=== PATIENT | male | born 1970 | race Caucasian/White ===

== ENCOUNTER 2016-07-13 00:45 | Emergency (ER) | payer SELFPAY ==
[2016-07-13] MEDS ORDERED: Tetanus/Diphtheria Toxoids 0.5 ml Syringe IM ONE ×2 (00:52→00:58)
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
[2016-07-13] MEDS ORDERED: Bacitracin 500 Units/gm Oint Foilpak UD ONE ×2 (01:23→01:25)
[2016-07-13 02:29] VITALS: BP 128/74; PULSE 89; RESP 18; TEMP 98.2; O2SAT 99
== END 2016-07-13 02:28 | disposition home or self-care (01) ==
LOC: C.ER 00:45
DX: S01.111A Laceration without foreign body of right eyelid and periocular area, initial encounter (principal); Y08.89XA Assault by other specified means, initial encounter; Y92.811 Bus as the place of occurrence of the external cause

== ENCOUNTER 2016-07-17 15:44 | Emergency (ER) | payer SELFPAY ==
[2016-07-17 16:00] VITALS: BMI 28.1
[2016-07-17 16:01] VITALS: BP 112/73; PULSE 82; RESP 18; TEMP 98.2; O2SAT 97
--- NOTE | 2016-07-17 17:04 | C.PDOC ---
History Of Present Illness 45 year old patient presents to the ED for suture removal. Patient was seen here 4 days ago for sutures to the right eyelid. Patient denies redness, eye pain, vision change, or fever. Time Seen by Provider: 07/17/16 16:49 Chief Complaint (Nursing): Suture/Staple Removal History Per: Patient History/Exam Limitations: no limitations Onset/Duration Of Symptoms: Days Ago (4) Current Symptoms Are (Timing): Still Present Quality Of Symptoms: Other Severity: None Pain Scale Rating Of: 0 Recent travel outside of the [place]: No Additional History Per: Prior Records Past Medical History Reviewed: Historical Data, Nursing Documentation, Vital Signs Vital Signs: Last Vital Signs Temp 98.2 F 07/17/16 15:59 Pulse 82 07/17/16 15:59 Resp 18 07/17/16 15:59 BP 112/73 07/17/16 15:59 Pulse Ox 97 07/17/16 17:46 Family History: States: Unknown Family Hx - Social History Hx Alcohol Use: Yes Hx Substance Use: No - Immunization History Hx Tetanus Toxoid Vaccination: No Hx Influenza Vaccination: No Hx Pneumococcal Vaccination: No Review Of Systems Except As Marked, All Systems Reviewed And Found Negative. Constitutional: Negative for: Fever Eyes: Positive for: Other (suture removal). Negative for: Pain, Vision Change Physical Exam - Physical Exam Appears: Non-toxic, No Acute Distress Skin: Warm, Dry Head: Atraumatic, Normacephalic Eye(s): bilateral: PERRL, EOMI, Other (sutures to the right eyelid; no erythema ; no discharge; intact) Neck: Normal ROM, Supple Chest: Symmetrical Respiratory: No Accessory Muscle Use Back: Normal Inspection Extremity: Normal ROM DTR: Tricep (L): 0 Neurological/Psych: Oriented x3, Normal Speech, Normal Cognition Gait: Steady ED Course And Treatment O2 Sat by Pulse Oximetry: 97 (RA) Pulse Ox Interpretation: Normal Progress Note: 1 suture was removed. More days are needed before the rest of the sutures are removed. Patient is instructed to follow up in 2 days for suture removal. Disposition - Disposition Disposition: HOME/ ROUTINE Disposition Time: 17:04 Condition: STABLE Additional Instructions: Return in 2 days. 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 - Scribe Statement The provider has reviewed the documentation as recorded by the Scribe Danelle Fatima All medical record entries made by the Scribe were at my direction and personally dictated by me. I have reviewed the chart and agree that the record accurately reflects my personal performance of the history, physical exam, medical decision making, and the department course for this patient. I have also personally directed, reviewed, and agree with the discharge instructions and disposition.
== END 2016-07-17 17:10 | disposition home or self-care (01) ==
LOC: C.ER 15:44
DX: Z48.02 Encounter for removal of sutures (principal)

== ENCOUNTER 2016-07-22 00:02 | Emergency (ER) | payer SELFPAY ==
[2016-07-22 00:03] VITALS: BMI 28.1
[2016-07-22 00:36] VITALS: BP 109/74; PULSE 75; TEMP 98.6; O2SAT 98
--- NOTE | 2016-07-22 00:45 | C.PDOC ---
History Of Present Illness A 45 year old male presents to the emergency room for right eyebrow suture removal. Patient had the sutures place on 07/13/16. Patient denies any pain, redness, discharge, visual changes or any other complaints. Time Seen by Provider: 07/22/16 00:25 Chief Complaint (Nursing): Suture/Staple Removal History Per: Patient History/Exam Limitations: no limitations Onset/Duration Of Symptoms: Days Ago Current Symptoms Are (Timing): Still Present Location Of Injury: Right: Face (Eyebrow) Quality Of Symptoms: denies: Painful, Itching, Swollen, Draining Severity: Mild Recent travel outside of the [place]: No Past Medical History Reviewed: Historical Data, Nursing Documentation, Vital Signs Vital Signs: Last Vital Signs Temp 98.6 F 07/22/16 00:32 Pulse 75 07/22/16 00:32 Resp 20 07/22/16 00:48 BP 109/74 07/22/16 00:32 Pulse Ox 98 07/22/16 02:54 Family History: States: Unknown Family Hx - Social History Hx Alcohol Use: Yes Hx Substance Use: No - Immunization History Hx Tetanus Toxoid Vaccination: Yes Hx Influenza Vaccination: No Hx Pneumococcal Vaccination: No Review Of Systems Except As Marked, All Systems Reviewed And Found Negative. Constitutional: Negative for: Fever, Chills Eyes: Positive for: Other (Right eyebrow suture removal) Gastrointestinal: Negative for: Nausea, Vomiting, Diarrhea Physical Exam - Physical Exam Appears: Well, Non-toxic, No Acute Distress Skin: Warm, Dry, No Rash Head: Atraumatic, Normacephalic Eye(s): bilateral: Normal Inspection, PERRL, EOMI, right: Other ((+) suturred healing wound to the right upper eye lid, just below eyebrow, no erythema , no discharge) Nose: Normal Oral Mucosa: Moist Chest: Symmetrical Respiratory: No Accessory Muscle Use Extremity: Normal ROM, No Tenderness Neurological/Psych: Oriented x3, Normal Speech, Normal Cognition ED Course And Treatment O2 Sat by Pulse Oximetry: 98 Progress Note: Sutures removed. Steristip applied. Discussed signs of infections and instructed to follow up with PMD in 1-2 days. Disposition - Disposition Disposition: HOME/ ROUTINE Disposition Time: 00:45 Condition: STABLE Instructions: Stitches Removal (ED) - Clinical Impression Clinical Impression: Removal of suture - Scribe Statement The provider has reviewed the documentation as recorded by the Scribe Pato Stock All medical record entries made by the Scribe were at my direction and personally dictated by me. I have reviewed the chart and agree that the record accurately reflects my personal performance of the history, physical exam, medical decision making, and the department course for this patient. I have also personally directed, reviewed, and agree with the discharge instructions and disposition.
[2016-07-22 00:49] VITALS: RESP 20
== END 2016-07-22 00:48 | disposition home or self-care (01) ==
LOC: C.ER 00:02
DX: Z48.02 Encounter for removal of sutures (principal)